=== PATIENT | female | born 1940 | race Hispanic/Latino ===

== ENCOUNTER 2021-06-19 12:56 | Outpatient (AMBR) | payer MEDICARE, MEDICAID, SELFPAY ==
--- NOTE | 2021-06-19 13:14 | PTNOTE_ITS ---
PT OP Initial Eval Patient Information Visit Reasons: history of femur FX Treatment Dx #1: UE and LE weakness Initial Assessment Subjective Pt is 81 yr old female in W/C here with niece caregiver and reports pt transfers out of W/C in a renzo lift. Pt was able to stand at last two sessions of therapy at [facility] but not walk. Caregiver says pt has difficulty moving the R shoulder and LE s/p CVA. PLOF: Last time she walked was prior to femur FX in October and she ambulated with a walker. PMH: CVA 10/03, Femur FX on L October 2020, epilepsy Pt goal: to be able to transfer to stand and walk. Objective LE ArOM: R knee extension: almost full in sitting Strength: Quads: 3-/5 HS: 3/5 R UE ArOM: FF: 85 deg Abd: 75 deg Transfers: sit to stand: can initiate fwd lean and starts to push up but unable to stand with hands pulling. Assessment Pt presents with global weakness and deconditioning along with R UE/LE weakness consistent with CVA. Pt requires more assist to stand from W/C than PT was able to give today so next time we will attempt with assist x2. Pt requires skilled therapy in order to improve LE strength and transfers and has fair rehab potential. Short Term and [facility] Living Goals 1. Ind with HEP 2. Improved quad strength to 3+/5 3. Pt will transfer from sit to stand with modAx1 in order to transfer from W/C to chair. Treatment Plan 90 day POC in order to complete visits. Pt requires skilled therapy in order to increase strength, decrease pain and address aforementioned impairments. Rx may consist of Therex, Manual therapy, Neuromuscular re-education, Gait training, and therapeutic activities. Modalities as indicated-moist heat packs, ice packs Frequency and Duration 2x a week for 6 weeks Certification Dates: 06/19/21 to 09/17/21 Office Procedures PT Treatments PT Date of Service: 06/19/21 OP PT Eval Mod Complex 30 minutes: Yes
== END 2021-07-15 23:59 | disposition home or self-care (01) ==
PROVIDERS: PCP Physician Assistant; Referring Provider Physician Assistant; Visit Provider Physician Assistant
DX: R53.1 Weakness (principal); Z99.3 Dependence on wheelchair
CPT/HCPCS: 97162